=== PATIENT | male | born 1955 | race Caucasian/White ===

== ENCOUNTER 2019-04-27 18:33 | Inpatient (IN) | payer MEDICARE, OTHER ==
[~2019-04-27] VITALS: Ht 182.9 cm; Wt 111.7 kg
--- NOTE | 2019-04-27 18:35 | NUR ---
pt recieved from [facility] with report of [facility]. er md donahue at bedside. pt recieved 324 asa, 2 mg morphine, 40 lasix prehospital. pt on bi pap. bilateral peripheral edema. pt A+Ox4. pt reports no previous heart problems. denies diabetes. pt reports he smokes about a pack a week.
--- NOTE | 2019-04-27 18:41 | NUR ---
code cardiac canceled, per dr shepherd
--- NOTE | 2019-04-27 19:00 | NUR ---
report given to andrew avelar Addendum: 04/27/19 at 1901 by VITALIY alexandra
[2019-04-27 19:03] LABS: MEAN CORPUSCULAR HEMOGLOBIN 28.1 pg (27.5-34.5); MEAN CORPUSCULAR VOLUME 85.1 fL (81-97); MEAN PLATELET VOLUME 10.5 fL (7.4-10.4); PLATELET COUNT 324 x10^3/uL (130-400); RED BLOOD COUNT 5.33 x10^6/uL (4.38-5.82); RED CELL DISTRIBUTION WIDTH 14.8 % (9.4-14.8)
[2019-04-27] MEDS ORDERED: BENA20TA61 PO (19:04)
[2019-04-27] MEDS ORDERED: CARV12.543 PO (19:04)
[2019-04-27] MEDS ORDERED: AMLO10TA4 PO (19:04)
--- NOTE | 2019-04-27 19:09 | NUR ---
Kendrick muro in [facility] - 04/27/19 at 1909 by MELITON Patient/Caregiver given discharge instructions and they have confirmed that they understand the instructions. Patient ambulatory with steady gait.
[2019-04-27 19:14] LABS: INTERNATIONAL NORMALIZED RATIO 1.12 (0.93-1.1); PROTHROMBIN TIME 11.7 Seconds (9.6-11.5)
--- NOTE | 2019-04-27 19:15 | NUR ---
REPORT REC. VERY PLEASANT GENTLEMAN WHO HAS HAD QUITE AN AFTERNOON, PRESENTED TO [facility] WITH COMPLAINTS OF SOB, HEMOPTYSIS, LEG SWELLING CHEST PAIN FOR APPROX 1 WEEK. 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 PT IS CURRENTLY ON OPTI FLOW, CONTIUES WITH SOME SOB, DR SERVIN IS COMING TO SEE PT CURRENTLY, WILL AWAIT CT WITH CONTRAST UNTIL LABS RETURNED AND PER DR PAN REQUEST TO EVAL PT HERE FIRST. PT NOTES THAT HE QUIT TAKING HIS MEDICATIONS 10 YEARS AGO AND CURRENTLY USES CBD OIL ONLY.
[2019-04-27 19:20] LABS: ALANINE AMINOTRANSFERASE 21 U/L (12-78); ALBUMIN 2.5 g/dL (3.4-5.0); ANION GAP 14 mmol/L (5-15); CHLORIDE 111 mmol/L (98-107); CREATININE 2.39 mg/dL (0.7-1.3)
[2019-04-27 19:23] LABS: ALKALINE PHOSPHATASE 61 U/L (45-117); BILIRUBIN,TOTAL 0.7 mg/dL (0.2-1.0); MD YES; TOTAL PROTEIN 7.1 g/dL (6.4-8.2)
[2019-04-27 19:25] LABS: <PLATELET ESTIMATE> ADEQUATE; <PLT MORPHOLOGY> NORMAL PLT MORPH; <RBC MORPHOLOGY> NORMAL; LYMPH#(MANUAL) 1.32 x10^3/uL (1-3.4); LYMPHS% (MANUAL) 6 % (22-44); MONOS% (MANUAL) 5 % (2-9); SEG#(MANUAL) 19.58 x10^3/uL (1.8-6.8); SEGS% (MANUAL) 89 % (42-75)
--- NOTE | 2019-04-27 19:34 | NUR ---
DUE TO ELEVATED CR, CT WILL BE NON CONTRAST. LABS DRAWING BLOOD CULTURES CURRENTLY, PT CONTINUES WITH ELEVATED WBC, 22 HERE.
--- NOTE | 2019-04-27 19:41 | NUR ---
PT REC LASIX 40MG IV AT 1756, MORPHINE 2MG 1759, ASA 324MG AND ZOFRAN MG CHILD DAY CARE PROVIDER AT [facility]
--- NOTE | 2019-04-27 19:59 | NUR ---
PT TO CT AT THIS TIME, VERY PLEASANT GENTLEMAN
--- NOTE | 2019-04-27 20:16 | NUR ---
PT RETURN FROM CT AT THIS TIME, STATES THAT HE IS FEELING SOMEWHAT BETTER AND PAIN FREE, ST MONITOR WITHOUT ECTOPY. CARD TELE BED CHANGED TO ICU PER CARDS AND HOSPITALIST
--- NOTE | 2019-04-27 20:19 | NUR ---
DR VAZQUEZ AT BEDSIDE.
[2019-04-27 20:23] LABS: CHOL/HDL RATIO 4.6; LDL/HDL RATIO 2.6 (0.5-3.0)
[2019-04-27] MEDS ORDERED: FUROSEMIDE 40 MG/4 ML IV ONE (20:30)
[2019-04-27] MEDS ORDERED: FUROSEMIDE 40 MG/4 ML ONE (20:34)
[2019-04-27] MEDS ORDERED: HEPARIN 5,000 UNITS/ML, 1ML ONE (20:40)
[2019-04-27] MEDS ORDERED: HEPARIN 25,000 UNITS/500ML PMX 500 ML ONE (20:40)
--- NOTE | 2019-04-27 20:41 | NUR ---
DR VAZQUEZ IS REQUESTING PT BE HELD IN ER.
[2019-04-27] MEDS ORDERED: morphine SULFATE 10 MG/ML, 1ML IVPush PRN (21:00)
[2019-04-27] MEDS ORDERED: ATORVASTATIN 80 MG TABLET PO SCH (21:00)
[2019-04-27] MEDS ORDERED: HEPARIN 5,000 UNITS/ML, 1ML IV PRN (21:00)
[2019-04-27] MEDS ORDERED: HEPARIN 25,000 UNITS/500ML PMX 500 ML IV PRN (21:00)
[2019-04-27] MEDS ORDERED: ONDANSETRON 2MG/ML, 2ML IVPush PRN (21:00)
[2019-04-27] MEDS ORDERED: HYDROcodone/APAP 5/325 TABLET PO PRN (21:00)
[2019-04-27] MEDS ORDERED: HEPARIN 5,000 UNITS/ML, 1ML IV ONE (21:00)
--- NOTE | 2019-04-27 21:00 | NUR ---
LAB REPORTS ELEVATED ANTICA ELEVATED 0.93, DR VAZQUEZ AWARE, SPEAKING WITH PHARMACY AND NOTE TO HOLD INFUSION FOR 1 HOUR, THEN RESTART 200ML LOWER, AT 800U/HR. PT REMAINS STABLE AND NAD AT THIS TIME.
[2019-04-27 22:15] VITALS: BP 112/78
[2019-04-28 01:39] VITALS: BP 104/71
[2019-04-28 03:10] LABS: MICROSCOPIC INDICATED
[2019-04-28 04:57] LABS: MEAN CORPUSCULAR HEMOGLOBIN 27.8 pg (27.5-34.5); MEAN CORPUSCULAR HGB CONC 32.7 g/dL (33.2-36.2); MEAN CORPUSCULAR VOLUME 84.9 fL (81-97); MEAN PLATELET VOLUME 10.3 fL (7.4-10.4); PLATELET COUNT 350 x10^3/uL (130-400); RED BLOOD COUNT 5.14 x10^6/uL (4.38-5.82); RED CELL DISTRIBUTION WIDTH 15.1 % (9.4-14.8)
[2019-04-28 05:04] LABS: ALANINE AMINOTRANSFERASE 23 U/L (12-78); ALBUMIN 2.5 g/dL (3.4-5.0); ANION GAP 12 mmol/L (5-15); CALCIUM 8.6 mg/dL (8.5-10.1); CHLORIDE 109 mmol/L (98-107); CREATININE 2.47 mg/dL (0.7-1.3)
[2019-04-28 05:09] LABS: ALKALINE PHOSPHATASE 57 U/L (45-117); BILIRUBIN,TOTAL 0.7 mg/dL (0.2-1.0); TOTAL PROTEIN 6.9 g/dL (6.4-8.2)
[2019-04-28 05:42] LABS: BASOPHILS # (AUTO) 0.15 x10^3/uL (0-0.1); BASOPHILS % (AUTO) 1 % (0-1); EOSINOPHILS # (AUTO) 0.02 x10^3/uL (0-0.4); EOSINOPHILS % (AUTO) 0 % (1-7); LYMPHOCYTES # (AUTO) 1.41 x10^3/uL (1-3.4); LYMPHOCYTES % (AUTO) 9 % (22-44); MD SCAN; MONOCYTES # (AUTO) 0.74 x10^3/uL (0.2-0.8); MONOCYTES % (AUTO) 5 % (2-9); NEUTROPHILS # (AUTO) 13.44 x10^3/uL (1.8-6.8); NEUTROPHILS % (AUTO) 85 % (42-75)
[2019-04-28] MEDS ORDERED: ASPIRIN 81 MG TABLET EC PO SCH (06:00)
[2019-04-28 07:42] VITALS: BP 118/78
[2019-04-28] MEDS: DOCUSATE 100 MG CAPSULE PO SCH ×2 (09:00→21:00)
[2019-04-28] MEDS ORDERED: PHARMACY MAY ADJ FOR RENAL FX MC PRN (10:00)
[2019-04-28] MEDS ORDERED: DOPAMINE/D5W PMX 250 ML IV PRN (10:30)
[2019-04-28] MEDS ORDERED: PIPERACILLIN/TAZO 2.25 GM in SODIUM CHLORIDE 0.9% 50 ML IV SCH (10:30)
[2019-04-28] MEDS ORDERED: FUROSEMIDE 40 MG/4 ML IV SCH (10:30)
[2019-04-28] MEDS ORDERED: FENTANYL PF 100 MCG/2ML ONE ×2 (11:10→11:19)
[2019-04-28] MEDS ORDERED: PROPOFOL 0 ML IV ONE (11:11)
[2019-04-28] MEDS ORDERED: FENTANYL PF 100 MCG/2ML IVPush ONE (11:30)
[2019-04-28] MEDS ORDERED: HEPARIN 1,000 UNITS/ML, 10ML ONE ×2 (11:33→11:57)
[2019-04-28] MEDS ORDERED: LIDOCAINE 1%, 20ML ONE (11:33)
[2019-04-28] MEDS ORDERED: MIDAZOLAM 1 MG/ML, 5ML ONE (11:33)
[2019-04-28] MEDS ORDERED: FENTANYL PF 250 MCG/5ML ONE ×5 (11:33→12:21)
[2019-04-28] MEDS ORDERED: BIVALIRUDIN 250 MG ONE (11:34)
[2019-04-28] MEDS ORDERED: PROPOFOL 100 ML IV PRN (11:43)
[2019-04-28] MEDS ORDERED: PAPAVERINE 30 MG/ML, 2ML ONE (11:57)
[2019-04-28] MEDS ORDERED: DEXMEDETOMIDINE 200 MCG in SODIUM CHLORIDE 0.9% 48 ML IV SCH (12:00)
[2019-04-28] MEDS ORDERED: VANCOMYCIN 1,700 MG in SODIUM CHLORIDE 0.9% 250 ML IV PRN (12:00)
[2019-04-28] MEDS ORDERED: PHARMACY MAY ADJ FOR RENAL FX MC SCH (12:00)
[2019-04-28] MEDS ORDERED: FENTANYL PF 100 MCG/2ML IVPush PRN ×2 (12:00→14:00)
[2019-04-28] MEDS ORDERED: BISACODYL 10 MG SUPP PR PRN ×2 (12:00→14:00)
[2019-04-28] MEDS ORDERED: EPINEPHRINE 2 MG in SODIUM CHLORIDE 0.9% 248 ML IV SCH (12:00)
[2019-04-28] MEDS ORDERED: CEFUROXIME 1.5 GM in SODIUM CHLORIDE 0.9% 50 ML IVPB PRN (12:00)
[2019-04-28] MEDS ORDERED: SENNA/DOCUSATE TABLET NG PRN (12:00)
[2019-04-28] MEDS ORDERED: POTASSIUM CHLORIDE 80 MEQ, SODIUM BICARBONATE 8.4% 10 MEQ, MAGNESIUM SULFATE 0.5 GM, LI... IV PRN (12:00)
[2019-04-28] MEDS ORDERED: SENNA 176 MG/5 ML ORAL SOL NG PRN (12:00)
[2019-04-28] MEDS: FAMOTIDINE 20 MG/2 ML IV SCH (12:00)
[2019-04-28] MEDS ORDERED: REGULAR INSULIN 62.5 UNITS in SODIUM CHLORIDE 0.9% 249.375 ML IV PRN ×2 (12:00→13:38)
[2019-04-28] MEDS ORDERED: PHENYLEPHRINE 10 MG in SODIUM CHLORIDE 0.9% 249 ML IV PRN ×2 (12:00→13:38)
[2019-04-28] MEDS ORDERED: MANNITOL PMX 20% 500 ML IVPB PRN (12:00)
[2019-04-28] MEDS ORDERED: LACTULOSE 20 GM/30 ML UDC NG PRN (12:00)
[2019-04-28] MEDS ORDERED: LIDOCAINE-MPF 1%, 2ML ENDO PRN (12:00)
[2019-04-28] MEDS ORDERED: ALBUMIN HUMAN 5% 500 ML IV PRN (12:00)
[2019-04-28] MEDS ORDERED: PHENYLEPHRINE 10 MG/ML ONE (12:14)
[2019-04-28] MEDS ORDERED: MIDAZOLAM 10MG/2 ML ONE (12:20)
[2019-04-28] MEDS ORDERED: SODIUM CHLORIDE 0.9% 1,000 ML IV PRN (13:38)
[2019-04-28] MEDS ORDERED: DOBUTAMINE 250 MG in SODIUM CHLORIDE 0.9% 230 ML IV PRN (13:38)
[2019-04-28] MEDS ORDERED: NITROGLYCERIN/D5W PMX 250 ML IV PRN (13:38)
[2019-04-28] MEDS ORDERED: VASOPRESSIN 50 UNIT in SODIUM CHLORIDE 0.9% 247.5 ML IV PRN (13:38)
[2019-04-28] MEDS ORDERED: EPINEPHRINE 2 MG in SODIUM CHLORIDE 0.9% 248 ML IV PRN (14:00)
[2019-04-28] MEDS ORDERED: DEXTROSE 50%, 50ML SYRINGE IVPush PRN (14:00)
[2019-04-28] MEDS ORDERED: LACTATED RINGERS 1,000 ML IV PRN (14:00)
[2019-04-28] MEDS ORDERED: SODIUM BICARB 8.4%, 50ML SYRINGE IV PRN (14:00)
[2019-04-28] MEDS ORDERED: PROCHLORPERAZINE 5 MG/ML, 2ML IVPush PRN (14:00)
[2019-04-28] MEDS ORDERED: GLUCAGON 1 MG IM PRN (14:00)
[2019-04-28] MEDS ORDERED: ONDANSETRON 2MG/ML, 2ML IVPush PRN (14:00)
[2019-04-28] MEDS ORDERED: MIDAZOLAM 1 MG/ML, 5ML IVPush PRN (14:00)
[2019-04-28] MEDS: KSCALE TO 4.5 IV SCH ×2 (14:00→20:00)
[2019-04-28] MEDS ORDERED: INSULIN REGULAR 100 UNITS/ML, 3ML VIAL IVPush PRN (14:00)
[2019-04-28] MEDS ORDERED: DEXTROSE 4 GM TAB.CHEW PO PRN (14:00)
[2019-04-28] MEDS ORDERED: ACETAMINOPHEN 650 MG SUPP PR PRN (14:00)
[2019-04-28] MEDS ORDERED: ROCURONIUM 10MG/ML,5ML ONE ×2 (14:23)
[2019-04-28] MEDS ORDERED: AMINOCAPROIC ACID 250 MG/ML, 20ML ONE (14:23)
[2019-04-28] MEDS ORDERED: PROPOFOL 10 MG/ML, 20ML ONE (14:23)
[2019-04-28] MEDS ORDERED: PROTAMINE SULFATE 10 MG/ML, 25ML ONE ×2 (14:23)
[2019-04-28] MEDS ORDERED: CALCIUM CHLORIDE 10%, 10ML SYR ONE (15:16)
[2019-04-28] MEDS ORDERED: EPINEPHRINE 1 MG/ML, 1ML ONE (15:37)
[2019-04-28] MEDS: INSULIN LISPRO 100 UNITS/ML, PEN SQ-INSULIN SCH ×2 (16:00→21:00)
[2019-04-28] MEDS ORDERED: methylPREDNISolone SOD SUCC 125 MG/2 ML ONE (16:01)
[2019-04-28] MEDS ORDERED: SODIUM BICARBONATE 1 MEQ/ML, 50ML VIAL ONE ×3 (16:01→17:32)
[2019-04-28] MEDS ORDERED: LIDOCAINE 2% 100MG/5ML SYRINGE ONE (16:01)
[2019-04-28] MEDS ORDERED: HEPARIN 1,000 UNITS/ML, 30ML ONE (16:02)
[2019-04-28] MEDS ORDERED: ALBUMIN HUMAN 25% 100 ML ONE (16:02)
[2019-04-28] MEDS: ALBUTEROL/IPRATROPIUM 2.5MG/0.5MG, 3 ML INLINE SCH ×2 (16:05→18:54)
[2019-04-28 16:33] LABS: GLUCOSE BY BLOOD GAS ANALYZER 209 mg/dL (70-110); POTASSIUM BY BLOOD GAS ANALYZR 3.9 mmol/L (3.6-5.5)
[2019-04-28 16:40] LABS: INTERNATIONAL NORMALIZED RATIO 1.29 (0.93-1.1); PROTHROMBIN TIME 13.4 Seconds (9.6-11.5)
[2019-04-28] MEDS: MAGNESIUM SULFATE 1 GM in SODIUM CHLORIDE 0.9% 50 ML IVPB SCH (17:39)
[2019-04-28] MEDS ORDERED: POTASSIUM CHLORIDE PMX 100 ML IV ONE (19:00)
[2019-04-28] MEDS ORDERED: EPINEPHRINE 8 MG in SODIUM CHLORIDE 0.9% 242 ML IV PRN (19:56)
[2019-04-28] MEDS: DEXMEDETOMIDINE 200 MCG in SODIUM CHLORIDE 0.9% 48 ML IV PRN (20:39)
[2019-04-28] MEDS: SODIUM CHLORIDE FLUSH 10ML SYR IVF SCH (21:48)
[2019-04-28] MEDS: MUPIROCIN OINT 2%, 22GM NAS SCH (21:49)
[2019-04-29] MEDS: DEXMEDETOMIDINE 200 MCG in SODIUM CHLORIDE 0.9% 48 ML IV PRN ×3 (00:10→06:06)
[2019-04-29] MEDS: CEFUROXIME 1.5 GM in SODIUM CHLORIDE 0.9% 50 ML IVPB SCH ×2 (01:19→14:07)
[2019-04-29] MEDS ORDERED: MIDAZOLAM 1 MG/ML, 2ML ONE (01:56)
[2019-04-29] MEDS: KSCALE TO 4.5 IV SCH ×2 (02:00→08:00)
[2019-04-29] MEDS: ALBUTEROL/IPRATROPIUM 2.5MG/0.5MG, 3 ML INLINE SCH ×5 (03:34→14:50)
[2019-04-29 04:51] LABS: CREATININE,URINE RANDOM 92.5 mg/dL
[2019-04-29 05:01] LABS: MEAN CORPUSCULAR HEMOGLOBIN 28.2 pg (27.5-34.5); MEAN CORPUSCULAR VOLUME 85.3 fL (81-97); MEAN PLATELET VOLUME 9.9 fL (7.4-10.4); PLATELET COUNT 193 x10^3/uL (130-400); RED BLOOD COUNT 4.03 x10^6/uL (4.38-5.82); RED CELL DISTRIBUTION WIDTH 15.2 % (9.4-14.8)
[2019-04-29 05:06] LABS: ALBUMIN 2.2 g/dL (3.4-5.0); ANION GAP 6 mmol/L (5-15); CALCIUM 8.1 mg/dL (8.5-10.1); CHLORIDE 115 mmol/L (98-107); INTERNATIONAL NORMALIZED RATIO 1.2 (0.93-1.1); PROTHROMBIN TIME 12.5 Seconds (9.6-11.5)
[2019-04-29 05:10] LABS: ALANINE AMINOTRANSFERASE 36 U/L (12-78); ALKALINE PHOSPHATASE 43 U/L (45-117); BILIRUBIN,TOTAL 0.7 mg/dL (0.2-1.0); TOTAL PROTEIN 5.3 g/dL (6.4-8.2)
[2019-04-29 05:45] LABS: BASOPHILS # (AUTO) 0.01 x10^3/uL (0-0.1); BASOPHILS % (AUTO) 0 % (0-1); EOSINOPHILS % (AUTO) 0 % (1-7); LYMPHOCYTES # (AUTO) 0.64 x10^3/uL (1-3.4); LYMPHOCYTES % (AUTO) 4 % (22-44); MD SCAN; MONOCYTES # (AUTO) 0.87 x10^3/uL (0.2-0.8); MONOCYTES % (AUTO) 6 % (2-9); NEUTROPHILS # (AUTO) 13.71 x10^3/uL (1.8-6.8); NEUTROPHILS % (AUTO) 90 % (42-75)
[2019-04-29] MEDS: INSULIN LISPRO 100 UNITS/ML, PEN SQ-INSULIN SCH ×5 (06:07→23:00)
[2019-04-29] MEDS: DOCUSATE 100 MG CAPSULE PO SCH ×2 (09:00→21:02)
[2019-04-29] MEDS: SODIUM CHLORIDE FLUSH 10ML SYR IVF SCH ×2 (09:00→21:02)
[2019-04-29] MEDS: MUPIROCIN OINT 2%, 22GM NAS SCH ×2 (09:00→21:01)
[2019-04-29] MEDS: ASPIRIN 81 MG TABLET EC PO SCH (09:00)
[2019-04-29] MEDS: WARFARIN BIOPROSTHETIC VALVE PROTOCOL 2-3 XX SCH (09:00)
[2019-04-29] MEDS ORDERED: VANCOMYCIN 1,700 MG in SODIUM CHLORIDE 0.9% 250 ML IVPB ONE ×2 (13:00→13:30)
[2019-04-29 13:16] LABS: CALCIUM 8.1 mg/dL (8.5-10.1)
[2019-04-29 13:17] LABS: ABSOLUTE RETICS # 0.108 x10^6/uL (0.5-1.5); RED BLOOD COUNT 4.04 x10^6/uL (4.38-5.82); RETICULOCYTE COUNT % 2.68 % (0.5-1.5)
[2019-04-29] MEDS: MAGNESIUM SULFATE 1 GM in SODIUM CHLORIDE 0.9% 50 ML IVPB SCH (14:06)
[2019-04-29] MEDS ORDERED: WARFARIN 5 MG TABLET PO-COUM SCH (18:00)
[2019-04-29] MEDS: HYDROcodone/APAP 10/325 MG TABLET PO PRN (20:29)
[2019-04-29] MEDS: CHLORHEXIDINE 15 ML UDC MM SCH (21:01)
[2019-04-30] MEDS: HYDROcodone/APAP 10/325 MG TABLET PO PRN ×4 (02:08→21:39)
[2019-04-30] MEDS: INSULIN LISPRO 100 UNITS/ML, PEN SQ-INSULIN SCH ×3 (03:00→11:22)
[2019-04-30] MEDS: FAMOTIDINE 20 MG/2 ML IV SCH ×2 (04:49→08:36)
[2019-04-30 04:54] LABS: MEAN CORPUSCULAR HEMOGLOBIN 27.4 pg (27.5-34.5); MEAN CORPUSCULAR HGB CONC 32.6 g/dL (33.2-36.2); MEAN CORPUSCULAR VOLUME 83.9 fL (81-97); MEAN PLATELET VOLUME 9.4 fL (7.4-10.4); PLATELET COUNT 147 x10^3/uL (130-400); RED BLOOD COUNT 3.88 x10^6/uL (4.38-5.82); RED CELL DISTRIBUTION WIDTH 15.5 % (9.4-14.8)
[2019-04-30 05:04] LABS: INTERNATIONAL NORMALIZED RATIO 1.14 (0.93-1.1); PROTHROMBIN TIME 11.9 Seconds (9.6-11.5)
[2019-04-30 05:06] LABS: ALBUMIN 2.1 g/dL (3.4-5.0); ANION GAP 8 mmol/L (5-15); CALCIUM 8.1 mg/dL (8.5-10.1); CHLORIDE 113 mmol/L (98-107)
[2019-04-30 05:11] LABS: ALANINE AMINOTRANSFERASE 36 U/L (12-78); ALKALINE PHOSPHATASE 48 U/L (45-117); BILIRUBIN,TOTAL 0.6 mg/dL (0.2-1.0); CREATINE KINASE, TOTAL 854 U/L (39-308); CREATININE 1.22 mg/dL (0.7-1.3); TOTAL PROTEIN 5.2 g/dL (6.4-8.2)
[2019-04-30 05:39] LABS: BASOPHILS # (AUTO) 0.07 x10^3/uL (0-0.1); BASOPHILS % (AUTO) 1 % (0-1); EOSINOPHILS # (AUTO) 0.02 x10^3/uL (0-0.4); EOSINOPHILS % (AUTO) 0 % (1-7); LYMPHOCYTES # (AUTO) 1.09 x10^3/uL (1-3.4); LYMPHOCYTES % (AUTO) 7 % (22-44); MD SCAN; MONOCYTES # (AUTO) 0.92 x10^3/uL (0.2-0.8); MONOCYTES % (AUTO) 6 % (2-9); NEUTROPHILS # (AUTO) 12.64 x10^3/uL (1.8-6.8); NEUTROPHILS % (AUTO) 86 % (42-75)
[2019-04-30] MEDS ORDERED: WARFARIN MODERAT DOSE PROTOCOL XX PRN (08:00)
[2019-04-30] MEDS: DOCUSATE 100 MG CAPSULE PO SCH ×2 (08:36→21:16)
[2019-04-30] MEDS: IRON SUCROSE COMPLEX 100MG/5ML IV SCH (08:36)
[2019-04-30] MEDS: ERGOCALCIFEROL 50,000 UNIT CAPSULE PO SCH (08:36)
[2019-04-30] MEDS: SODIUM CHLORIDE FLUSH 10ML SYR IVF SCH ×2 (08:37→21:16)
[2019-04-30] MEDS: ASPIRIN 81 MG TABLET EC PO SCH (08:37)
[2019-04-30] MEDS: MUPIROCIN OINT 2%, 22GM NAS SCH ×2 (08:37→21:16)
[2019-04-30 10:30] VITALS: BP 158/89
[2019-04-30] MEDS: CHLORHEXIDINE 15 ML UDC MM SCH ×2 (10:56→21:16)
[2019-04-30] MEDS: METOPROLOL TARTRATE 25 MG TABLET PO SCH ×2 (10:57→18:14)
[2019-04-30] MEDS: WARFARIN BIOPROSTHETIC VALVE PROTOCOL 2-3 XX SCH (11:03)
[2019-04-30 12:34] LABS: MICROSCOPIC INDICATED
[2019-04-30] MEDS: MAGNESIUM SULFATE 1 GM in SODIUM CHLORIDE 0.9% 50 ML IVPB SCH (13:36)
[2019-04-30 14:50] VITALS: BP 161/75
[2019-04-30] MEDS ORDERED: WARFARIN 5 MG TABLET PO-COUM ONE (18:00)
[2019-04-30] MEDS ORDERED: WARFARIN 7.5 MG TABLET PO-COUM ONE (18:00)
[2019-04-30 18:10] VITALS: BP 125/70
[2019-04-30 18:57] VITALS: BP 134/67
[2019-04-30] MEDS: ATORVASTATIN 80 MG TABLET PO SCH (21:16)
[2019-05-01 01:22] VITALS: BP 146/90
[2019-05-01 04:24] LABS: BASOPHILS # (AUTO) 0.02 x10^3/uL (0-0.1); BASOPHILS % (AUTO) 0 % (0-1); EOSINOPHILS # (AUTO) 0.08 x10^3/uL (0-0.4); EOSINOPHILS % (AUTO) 1 % (1-7); LYMPHOCYTES # (AUTO) 1.21 x10^3/uL (1-3.4); LYMPHOCYTES % (AUTO) 9 % (22-44); MD NO; MEAN CORPUSCULAR HGB CONC 32.9 g/dL (33.2-36.2); MEAN CORPUSCULAR VOLUME 85.2 fL (81-97); MEAN PLATELET VOLUME 9.9 fL (7.4-10.4); MONOCYTES # (AUTO) 0.89 x10^3/uL (0.2-0.8); MONOCYTES % (AUTO) 7 % (2-9); NEUTROPHILS # (AUTO) 10.67 x10^3/uL (1.8-6.8); NEUTROPHILS % (AUTO) 83 % (42-75); PLATELET COUNT 157 x10^3/uL (130-400); RED BLOOD COUNT 3.94 x10^6/uL (4.38-5.82); RED CELL DISTRIBUTION WIDTH 14.7 % (9.4-14.8)
[2019-05-01 04:29] LABS: ALANINE AMINOTRANSFERASE 35 U/L (12-78); ALBUMIN 2.3 g/dL (3.4-5.0); ANION GAP 9 mmol/L (5-15); CALCIUM 8.1 mg/dL (8.5-10.1); CHLORIDE 109 mmol/L (98-107); CREATININE 0.99 mg/dL (0.7-1.3)
[2019-05-01 04:33] LABS: ALKALINE PHOSPHATASE 48 U/L (45-117); BILIRUBIN,TOTAL 0.6 mg/dL (0.2-1.0); TOTAL PROTEIN 5.3 g/dL (6.4-8.2); TRIGLYCERIDES 182 mg/dL (50-200)
[2019-05-01 05:59] VITALS: BP 137/85
[2019-05-01] MEDS: METOPROLOL TARTRATE 25 MG TABLET PO SCH ×2 (06:00→18:21)
[2019-05-01] MEDS: HYDROcodone/APAP 10/325 MG TABLET PO PRN (06:19)
[2019-05-01 06:25] VITALS: BP 145/90
[2019-05-01] MEDS: MUPIROCIN OINT 2%, 22GM NAS SCH ×2 (08:38→21:02)
[2019-05-01] MEDS: IRON SUCROSE COMPLEX 100MG/5ML IV SCH (08:38)
[2019-05-01] MEDS: CHLORHEXIDINE 15 ML UDC MM SCH (08:38)
[2019-05-01] MEDS: SODIUM CHLORIDE FLUSH 10ML SYR IVF SCH ×2 (08:38→21:02)
[2019-05-01] MEDS: ASPIRIN 81 MG TABLET EC PO SCH (08:38)
[2019-05-01] MEDS: DOCUSATE 100 MG CAPSULE PO SCH ×2 (08:38→20:47)
[2019-05-01 08:46] LABS: INTERNATIONAL NORMALIZED RATIO 1.27 (0.93-1.1); PROTHROMBIN TIME 13.2 Seconds (9.6-11.5)
[2019-05-01] MEDS: WARFARIN BIOPROSTHETIC VALVE PROTOCOL 2-3 XX SCH (09:00)
[2019-05-01] MEDS: HYDROCHLOROTHIAZIDE 25 MG TABLET PO SCH (10:59)
[2019-05-01] MEDS: ENALAPRIL 5MG TABLET PO SCH ×2 (11:00→20:47)
[2019-05-01 12:33] VITALS: BP 138/62
[2019-05-01] MEDS ORDERED: WARFARIN 7.5 MG TABLET PO-COUM ONE (18:00)
[2019-05-01] MEDS: ACETAMINOPHEN 325 MG TABLET PO PRN (20:47)
[2019-05-01] MEDS: FAMOTIDINE 20 MG TABLET PO SCH (20:47)
[2019-05-01] MEDS: ATORVASTATIN 80 MG TABLET PO SCH (20:47)
[2019-05-01] MEDS: BISACODYL 5 MG EC TABLET PO PRN (20:47)
[2019-05-01 20:48] VITALS: BP 149/97
[2019-05-02 01:29] VITALS: BP 150/102
[2019-05-02 05:14] VITALS: BP 144/98
[2019-05-02] MEDS: METOPROLOL TARTRATE 25 MG TABLET PO SCH ×2 (05:15→17:38)
[2019-05-02 06:23] LABS: INTERNATIONAL NORMALIZED RATIO 2.32 (0.93-1.1); PROTHROMBIN TIME 23.6 Seconds (9.6-11.5)
[2019-05-02 06:25] LABS: ALBUMIN 2.2 g/dL (3.4-5.0); ANION GAP 8 mmol/L (5-15); CALCIUM 8.2 mg/dL (8.5-10.1); CHLORIDE 109 mmol/L (98-107)
[2019-05-02 06:26] LABS: CREATININE 0.91 mg/dL (0.7-1.3)
[2019-05-02 06:28] LABS: BASOPHILS % (AUTO) 0 % (0-1); EOSINOPHILS # (AUTO) 0.17 x10^3/uL (0-0.4); EOSINOPHILS % (AUTO) 2 % (1-7); LYMPHOCYTES # (AUTO) 1.35 x10^3/uL (1-3.4); LYMPHOCYTES % (AUTO) 12 % (22-44); MD NO; MEAN CORPUSCULAR HEMOGLOBIN 27.9 pg (27.5-34.5); MEAN CORPUSCULAR HGB CONC 33.1 g/dL (33.2-36.2); MEAN CORPUSCULAR VOLUME 84.3 fL (81-97); MEAN PLATELET VOLUME 10.2 fL (7.4-10.4); MONOCYTES # (AUTO) 0.89 x10^3/uL (0.2-0.8); MONOCYTES % (AUTO) 8 % (2-9); NEUTROPHILS # (AUTO) 8.98 x10^3/uL (1.8-6.8); NEUTROPHILS % (AUTO) 79 % (42-75); PLATELET COUNT 191 x10^3/uL (130-400); RED BLOOD COUNT 4.24 x10^6/uL (4.38-5.82); RED CELL DISTRIBUTION WIDTH 14.9 % (9.4-14.8)
[2019-05-02 08:00] VITALS: BP 142/91
[2019-05-02] MEDS: HYDROCHLOROTHIAZIDE 25 MG TABLET PO SCH (08:18)
[2019-05-02] MEDS: IRON SUCROSE COMPLEX 100MG/5ML IV SCH (08:18)
[2019-05-02] MEDS: SODIUM CHLORIDE FLUSH 10ML SYR IVF SCH ×2 (08:18→21:30)
[2019-05-02] MEDS: FAMOTIDINE 20 MG TABLET PO SCH ×2 (08:19→21:30)
[2019-05-02] MEDS: MUPIROCIN OINT 2%, 22GM NAS SCH ×2 (08:19→21:30)
[2019-05-02] MEDS: ASPIRIN 81 MG TABLET EC PO SCH (08:19)
[2019-05-02] MEDS: ENALAPRIL 5MG TABLET PO SCH ×2 (08:19→21:30)
[2019-05-02] MEDS: DOCUSATE 100 MG CAPSULE PO SCH (08:19)
[2019-05-02] MEDS: WARFARIN BIOPROSTHETIC VALVE PROTOCOL 2-3 XX SCH (10:06)
[2019-05-02 11:13] LABS: MICROSCOPIC INDICATED
[2019-05-02 13:36] VITALS: BP 153/95
[2019-05-02] MEDS ORDERED: WARFARIN 2 MG TABLET PO-COUM ONE (18:00)
[2019-05-02 18:56] VITALS: BP 143/87
[2019-05-02] MEDS: ATORVASTATIN 80 MG TABLET PO SCH (21:30)
[2019-05-03 01:02] VITALS: BP 131/88
[2019-05-03 05:31] LABS: INTERNATIONAL NORMALIZED RATIO 4.33 (0.93-1.1)
[2019-05-03 05:33] LABS: BASOPHILS # (AUTO) 0.03 x10^3/uL (0-0.1); BASOPHILS % (AUTO) 0 % (0-1); EOSINOPHILS # (AUTO) 0.22 x10^3/uL (0-0.4); EOSINOPHILS % (AUTO) 2 % (1-7); LYMPHOCYTES # (AUTO) 1.32 x10^3/uL (1-3.4); LYMPHOCYTES % (AUTO) 14 % (22-44); MD NO; MEAN CORPUSCULAR HEMOGLOBIN 27.7 pg (27.5-34.5); MEAN CORPUSCULAR HGB CONC 33.1 g/dL (33.2-36.2); MEAN CORPUSCULAR VOLUME 83.6 fL (81-97); MEAN PLATELET VOLUME 9.9 fL (7.4-10.4); MONOCYTES # (AUTO) 0.84 x10^3/uL (0.2-0.8); MONOCYTES % (AUTO) 9 % (2-9); NEUTROPHILS # (AUTO) 7.34 x10^3/uL (1.8-6.8); NEUTROPHILS % (AUTO) 75 % (42-75); PLATELET COUNT 206 x10^3/uL (130-400); RED BLOOD COUNT 4.09 x10^6/uL (4.38-5.82); RED CELL DISTRIBUTION WIDTH 14.4 % (9.4-14.8)
[2019-05-03 05:39] LABS: CALCIUM 8.2 mg/dL (8.5-10.1); CHLORIDE 107 mmol/L (98-107)
[2019-05-03 05:41] LABS: ANION GAP 8 mmol/L (5-15); CREATININE 0.78 mg/dL (0.7-1.3)
[2019-05-03] MEDS: METOPROLOL TARTRATE 25 MG TABLET PO SCH ×2 (06:36→17:58)
[2019-05-03 07:32] VITALS: BP 127/90
[2019-05-03] MEDS: IRON SUCROSE COMPLEX 100MG/5ML IV SCH (09:17)
[2019-05-03] MEDS: DOCUSATE 100 MG CAPSULE PO SCH (09:17)
[2019-05-03] MEDS: MUPIROCIN OINT 2%, 22GM NAS SCH (09:17)
[2019-05-03] MEDS: FAMOTIDINE 20 MG TABLET PO SCH ×2 (09:17→20:58)
[2019-05-03] MEDS: HYDROCHLOROTHIAZIDE 25 MG TABLET PO SCH (09:17)
[2019-05-03] MEDS: ASPIRIN 81 MG TABLET EC PO SCH (09:17)
[2019-05-03] MEDS: ENALAPRIL 5MG TABLET PO SCH ×2 (09:18→20:58)
[2019-05-03] MEDS: SODIUM CHLORIDE FLUSH 10ML SYR IVF SCH ×2 (09:18→20:59)
[2019-05-03] MEDS: WARFARIN BIOPROSTHETIC VALVE PROTOCOL 2-3 XX SCH (09:18)
[2019-05-03 14:06] VITALS: BP 138/86
[2019-05-03] MEDS ORDERED: HOLD WARFARIN MC PRN (15:00)
[2019-05-03 19:17] VITALS: BP 120/83
[2019-05-03] MEDS: ATORVASTATIN 80 MG TABLET PO SCH (20:58)
[2019-05-04 01:24] VITALS: BP 159/106
[2019-05-04] MEDS ORDERED: ENALAPRILAT 1.25 MG/ML, 2ML IV ONE (02:00)
[2019-05-04] MEDS ORDERED: ENALAPRILAT 1.25 MG/ML, 1ML ONE (02:15)
[2019-05-04 02:46] VITALS: BP 145/92
[2019-05-04 05:03] LABS: ANION GAP 7 mmol/L (5-15); BASOPHILS # (AUTO) 0.04 x10^3/uL (0-0.1); BASOPHILS % (AUTO) 0 % (0-1); CALCIUM 8.4 mg/dL (8.5-10.1); CHLORIDE 109 mmol/L (98-107); CREATININE 0.84 mg/dL (0.7-1.3); EOSINOPHILS # (AUTO) 0.13 x10^3/uL (0-0.4); EOSINOPHILS % (AUTO) 1 % (1-7); LYMPHOCYTES # (AUTO) 1.41 x10^3/uL (1-3.4); LYMPHOCYTES % (AUTO) 14 % (22-44); MD NO; MEAN CORPUSCULAR HGB CONC 33.1 g/dL (33.2-36.2); MEAN CORPUSCULAR VOLUME 84.6 fL (81-97); MEAN PLATELET VOLUME 9.9 fL (7.4-10.4); MONOCYTES # (AUTO) 0.84 x10^3/uL (0.2-0.8); MONOCYTES % (AUTO) 8 % (2-9); NEUTROPHILS # (AUTO) 7.61 x10^3/uL (1.8-6.8); NEUTROPHILS % (AUTO) 76 % (42-75); PLATELET COUNT 245 x10^3/uL (130-400); RED BLOOD COUNT 4.34 x10^6/uL (4.38-5.82); RED CELL DISTRIBUTION WIDTH 14.8 % (9.4-14.8); TRIGLYCERIDES 166 mg/dL (50-200)
[2019-05-04] MEDS: METOPROLOL TARTRATE 25 MG TABLET PO SCH ×2 (05:51→17:20)
[2019-05-04] MEDS: ACETAMINOPHEN 325 MG TABLET PO PRN ×2 (05:54→17:19)
[2019-05-04 06:23] LABS: INTERNATIONAL NORMALIZED RATIO 4.78 (0.93-1.1); PROTHROMBIN TIME 47.3 Seconds (9.6-11.5)
[2019-05-04 06:40] VITALS: BP 132/91
[2019-05-04] MEDS: ENALAPRIL 5MG TABLET PO SCH ×2 (08:21→20:27)
[2019-05-04] MEDS: HYDROCHLOROTHIAZIDE 25 MG TABLET PO SCH (08:22)
[2019-05-04] MEDS: ASPIRIN 81 MG TABLET EC PO SCH (08:23)
[2019-05-04] MEDS: IRON SUCROSE COMPLEX 100MG/5ML IV SCH (08:23)
[2019-05-04] MEDS: DOCUSATE 100 MG CAPSULE PO SCH (08:23)
[2019-05-04] MEDS: FAMOTIDINE 20 MG TABLET PO SCH ×2 (08:23→20:27)
[2019-05-04] MEDS: SODIUM CHLORIDE FLUSH 10ML SYR IVF SCH ×2 (08:24→20:27)
[2019-05-04] MEDS ORDERED: PHYTONADIONE 10 MG/ML, 1ML IM ONE (11:30)
[2019-05-04] MEDS ORDERED: POTASSIUM CHLORIDE 20 MEQ TAB.ER.PRT PO ONE (12:30)
[2019-05-04 14:48] VITALS: BP 98/54
[2019-05-04 15:00] VITALS: BP 130/85
[2019-05-04] MEDS: PHENAZOPYRIDINE 200 MG TABLET PO PRN (17:18)
[2019-05-04 18:12] LABS: MICROSCOPIC INDICATED
[2019-05-04 18:42] VITALS: BP 140/89
[2019-05-04] MEDS: ATORVASTATIN 80 MG TABLET PO SCH (20:27)
[2019-05-04 23:48] LABS: CLOSTRIDIUM DIFFICILE ANTIGEN NEGATIVE; CLOSTRIDIUM DIFFICILE TOXIN NEGATIVE (Negative)
[2019-05-05] MEDS: ACETAMINOPHEN 325 MG TABLET PO PRN ×2 (00:37→13:49)
[2019-05-05 01:22] VITALS: BP 145/95
[2019-05-05] MEDS: PHENAZOPYRIDINE 200 MG TABLET PO PRN ×2 (04:31→13:49)
[2019-05-05 04:54] LABS: BASOPHILS # (AUTO) 0.02 x10^3/uL (0-0.1); BASOPHILS % (AUTO) 0 % (0-1); EOSINOPHILS # (AUTO) 0.15 x10^3/uL (0-0.4); EOSINOPHILS % (AUTO) 1 % (1-7); LYMPHOCYTES # (AUTO) 1.56 x10^3/uL (1-3.4); LYMPHOCYTES % (AUTO) 15 % (22-44); MD NO; MEAN CORPUSCULAR HGB CONC 33.1 g/dL (33.2-36.2); MEAN CORPUSCULAR VOLUME 84.5 fL (81-97); MEAN PLATELET VOLUME 9.8 fL (7.4-10.4); MONOCYTES # (AUTO) 0.88 x10^3/uL (0.2-0.8); MONOCYTES % (AUTO) 8 % (2-9); NEUTROPHILS # (AUTO) 8.17 x10^3/uL (1.8-6.8); NEUTROPHILS % (AUTO) 76 % (42-75); PLATELET COUNT 273 x10^3/uL (130-400); RED CELL DISTRIBUTION WIDTH 14.9 % (9.4-14.8)
[2019-05-05 05:03] LABS: INTERNATIONAL NORMALIZED RATIO 3.23 (0.93-1.1); PROTHROMBIN TIME 32.4 Seconds (9.6-11.5)
[2019-05-05] MEDS: METOPROLOL TARTRATE 25 MG TABLET PO SCH ×2 (05:03→17:49)
[2019-05-05 05:06] LABS: ANION GAP 9 mmol/L (5-15); CALCIUM 8.5 mg/dL (8.5-10.1); CHLORIDE 109 mmol/L (98-107)
[2019-05-05 07:12] VITALS: BP 139/91
[2019-05-05] MEDS: DOCUSATE 100 MG CAPSULE PO SCH (07:33)
[2019-05-05] MEDS: ASPIRIN 81 MG TABLET EC PO SCH (08:10)
[2019-05-05] MEDS: FAMOTIDINE 20 MG TABLET PO SCH ×2 (08:10→20:21)
[2019-05-05] MEDS: ENALAPRIL 5MG TABLET PO SCH ×2 (08:10→20:20)
[2019-05-05] MEDS: HYDROCHLOROTHIAZIDE 25 MG TABLET PO SCH (08:12)
[2019-05-05] MEDS: SODIUM CHLORIDE FLUSH 10ML SYR IVF SCH ×2 (08:13→20:21)
[2019-05-05 13:39] VITALS: BP 130/86
[2019-05-05] MEDS: TAMSULOSIN 0.4 MG CAP.ER.24H PO SCH (17:49)
[2019-05-05 17:52] VITALS: BP 125/83
[2019-05-05 18:51] VITALS: BP 134/87
[2019-05-05] MEDS: ATORVASTATIN 80 MG TABLET PO SCH (20:20)
[2019-05-06 01:46] VITALS: BP 129/85
[2019-05-06 05:13] VITALS: BP 136/90
[2019-05-06] MEDS: METOPROLOL TARTRATE 25 MG TABLET PO SCH ×2 (05:14→18:15)
[2019-05-06] MEDS: ACETAMINOPHEN 325 MG TABLET PO PRN (05:14)
[2019-05-06 06:02] LABS: BASOPHILS # (AUTO) 0.03 x10^3/uL (0-0.1); BASOPHILS % (AUTO) 0 % (0-1); EOSINOPHILS # (AUTO) 0.17 x10^3/uL (0-0.4); EOSINOPHILS % (AUTO) 2 % (1-7); LYMPHOCYTES # (AUTO) 1.68 x10^3/uL (1-3.4); LYMPHOCYTES % (AUTO) 16 % (22-44); MD NO; MEAN CORPUSCULAR HEMOGLOBIN 28.2 pg (27.5-34.5); MEAN CORPUSCULAR HGB CONC 33.3 g/dL (33.2-36.2); MEAN CORPUSCULAR VOLUME 84.6 fL (81-97); MEAN PLATELET VOLUME 9.6 fL (7.4-10.4); MONOCYTES # (AUTO) 0.94 x10^3/uL (0.2-0.8); MONOCYTES % (AUTO) 9 % (2-9); NEUTROPHILS # (AUTO) 7.42 x10^3/uL (1.8-6.8); NEUTROPHILS % (AUTO) 72 % (42-75); PLATELET COUNT 299 x10^3/uL (130-400); RED BLOOD COUNT 4.31 x10^6/uL (4.38-5.82)
[2019-05-06 06:11] LABS: ANION GAP 7 mmol/L (5-15); CALCIUM 8.4 mg/dL (8.5-10.1); CHLORIDE 109 mmol/L (98-107); CREATININE 0.86 mg/dL (0.7-1.3)
[2019-05-06 06:21] LABS: INTERNATIONAL NORMALIZED RATIO 1.88 (0.93-1.1); PROTHROMBIN TIME 19.3 Seconds (9.6-11.5)
[2019-05-06 07:05] VITALS: BP 135/87
[2019-05-06] MEDS ORDERED: Tamsulosin PO (08:53)
[2019-05-06] MEDS ORDERED: ACET325T26 PO (08:53)
[2019-05-06] MEDS ORDERED: ATOR-2 PO (08:53)
[2019-05-06] MEDS ORDERED: ASPI81TA45 PO (08:53)
[2019-05-06] MEDS: DOCUSATE 100 MG CAPSULE PO SCH (09:00)
[2019-05-06] MEDS: HYDROCHLOROTHIAZIDE 25 MG TABLET PO SCH (09:00)
[2019-05-06] MEDS ORDERED: WARF5TAB PO ×2 (09:04)
[2019-05-06] MEDS: FAMOTIDINE 20 MG TABLET PO SCH ×2 (09:42→20:27)
[2019-05-06] MEDS: ENALAPRIL 5MG TABLET PO SCH ×2 (09:42→20:27)
[2019-05-06] MEDS: TAMSULOSIN 0.4 MG CAP.ER.24H PO SCH (09:43)
[2019-05-06] MEDS: ASPIRIN 81 MG TABLET EC PO SCH (09:43)
[2019-05-06] MEDS ORDERED: FILTER 0.22 MICRON FOR AMIODARONE IV PRN (10:00)
[2019-05-06] MEDS ORDERED: AMIODARONE 900 MG in DEXTROSE 5% 482 ML IV PRN (10:00)
[2019-05-06] MEDS ORDERED: AMIODARONE 150 MG in DEXTROSE 5% 100 ML IV ONE (10:00)
[2019-05-06] MEDS ORDERED: POTASSIUM CHLORIDE 20 MEQ TAB.ER.PRT PO ONE (10:00)
[2019-05-06] MEDS: SODIUM CHLORIDE FLUSH 10ML SYR IVF SCH ×2 (10:15→20:27)
[2019-05-06 13:56] VITALS: BP 124/82
[2019-05-06 18:46] VITALS: BP 148/88
[2019-05-06 20:25] VITALS: BP 120/77
[2019-05-06] MEDS: ATORVASTATIN 80 MG TABLET PO SCH (20:26)
[2019-05-07 01:13] VITALS: BP 139/86
[2019-05-07 05:17] VITALS: BP 127/84
[2019-05-07] MEDS: METOPROLOL TARTRATE 25 MG TABLET PO SCH ×2 (05:22→18:16)
[2019-05-07 05:25] LABS: BASOPHILS # (AUTO) 0.03 x10^3/uL (0-0.1); BASOPHILS % (AUTO) 0 % (0-1); EOSINOPHILS # (AUTO) 0.18 x10^3/uL (0-0.4); EOSINOPHILS % (AUTO) 2 % (1-7); LYMPHOCYTES # (AUTO) 1.65 x10^3/uL (1-3.4); LYMPHOCYTES % (AUTO) 15 % (22-44); MD NO; MEAN CORPUSCULAR HEMOGLOBIN 27.5 pg (27.5-34.5); MEAN CORPUSCULAR HGB CONC 32.8 g/dL (33.2-36.2); MEAN CORPUSCULAR VOLUME 83.9 fL (81-97); MEAN PLATELET VOLUME 9.5 fL (7.4-10.4); MONOCYTES # (AUTO) 0.91 x10^3/uL (0.2-0.8); MONOCYTES % (AUTO) 8 % (2-9); NEUTROPHILS # (AUTO) 8.56 x10^3/uL (1.8-6.8); NEUTROPHILS % (AUTO) 76 % (42-75); PLATELET COUNT 289 x10^3/uL (130-400); RED BLOOD COUNT 4.32 x10^6/uL (4.38-5.82); RED CELL DISTRIBUTION WIDTH 15.1 % (9.4-14.8)
[2019-05-07 05:27] LABS: INTERNATIONAL NORMALIZED RATIO 1.79 (0.93-1.1); PROTHROMBIN TIME 18.4 Seconds (9.6-11.5)
[2019-05-07 05:38] LABS: ALANINE AMINOTRANSFERASE 37 U/L (12-78); ALBUMIN 2.4 g/dL (3.4-5.0); ANION GAP 7 mmol/L (5-15); CALCIUM 8.3 mg/dL (8.5-10.1); CHLORIDE 109 mmol/L (98-107); CREATININE 0.91 mg/dL (0.7-1.3)
[2019-05-07 05:40] LABS: ALKALINE PHOSPHATASE 57 U/L (45-117); BILIRUBIN,TOTAL 0.6 mg/dL (0.2-1.0); TOTAL PROTEIN 6.3 g/dL (6.4-8.2); TRIGLYCERIDES 114 mg/dL (50-200)
[2019-05-07 07:26] VITALS: BP 131/86
[2019-05-07] MEDS: ERGOCALCIFEROL 50,000 UNIT CAPSULE PO SCH (08:19)
[2019-05-07] MEDS: ASPIRIN 81 MG TABLET EC PO SCH (08:19)
[2019-05-07] MEDS: TAMSULOSIN 0.4 MG CAP.ER.24H PO SCH (08:19)
[2019-05-07] MEDS: DOCUSATE 100 MG CAPSULE PO SCH (08:20)
[2019-05-07] MEDS: SODIUM CHLORIDE FLUSH 10ML SYR IVF SCH ×2 (08:20→20:44)
[2019-05-07] MEDS: FAMOTIDINE 20 MG TABLET PO SCH ×2 (08:20→20:44)
[2019-05-07] MEDS: ENALAPRIL 5MG TABLET PO SCH ×2 (08:20→20:44)
[2019-05-07] MEDS ORDERED: MAGNESIUM SULFATE PMX 2GM/50ML 50 ML IV ONE (08:30)
[2019-05-07] MEDS ORDERED: AMIODARONE 200 MG TABLET PO SCH ×2 (09:00)
[2019-05-07] MEDS ORDERED: FUROSEMIDE 40 MG/4 ML IV ONE (09:30)
[2019-05-07] MEDS ORDERED: POTASSIUM CHLORIDE 20 MEQ TAB.ER.PRT PO ONE (09:30)
[2019-05-07 13:41] VITALS: BP 122/84
[2019-05-07] MEDS: WARFARIN 2 MG TABLET PO-COUM SCH (18:15)
[2019-05-07] MEDS: ACETAMINOPHEN 325 MG TABLET PO PRN (18:15)
[2019-05-07 19:25] VITALS: BP 111/73
[2019-05-07] MEDS ORDERED: DILTIAZEM 5 MG/ML, 5ML ONE (19:43)
[2019-05-07] MEDS ORDERED: ASPIRIN 325 MG TABLET PO STA (19:48)
[2019-05-07] MEDS ORDERED: ASPIRIN 325 MG TABLET ONE (19:49)
[2019-05-07] MEDS ORDERED: AMIODARONE 900 MG in DEXTROSE 5% 482 ML IV SCH (20:02)
[2019-05-07] MEDS ORDERED: FILTER 0.22 MICRON FOR AMIODARONE IV PRN (20:30)
[2019-05-07] MEDS: ATORVASTATIN 80 MG TABLET PO SCH (20:44)
[2019-05-08 01:15] VITALS: BP 127/84
[2019-05-08 05:22] LABS: BASOPHILS # (AUTO) 0.14 x10^3/uL (0-0.1); BASOPHILS % (AUTO) 1 % (0-1); EOSINOPHILS # (AUTO) 0.16 x10^3/uL (0-0.4); EOSINOPHILS % (AUTO) 2 % (1-7); LYMPHOCYTES # (AUTO) 1.79 x10^3/uL (1-3.4); LYMPHOCYTES % (AUTO) 18 % (22-44); MD NO; MEAN CORPUSCULAR VOLUME 84.2 fL (81-97); MEAN PLATELET VOLUME 9.9 fL (7.4-10.4); MONOCYTES # (AUTO) 0.97 x10^3/uL (0.2-0.8); MONOCYTES % (AUTO) 10 % (2-9); NEUTROPHILS # (AUTO) 6.97 x10^3/uL (1.8-6.8); NEUTROPHILS % (AUTO) 70 % (42-75); PLATELET COUNT 275 x10^3/uL (130-400); RED BLOOD COUNT 4.25 x10^6/uL (4.38-5.82)
[2019-05-08 05:23] LABS: INTERNATIONAL NORMALIZED RATIO 1.94 (0.93-1.1); PROTHROMBIN TIME 19.9 Seconds (9.6-11.5)
[2019-05-08 05:38] LABS: ALANINE AMINOTRANSFERASE 34 U/L (12-78); ALBUMIN 2.5 g/dL (3.4-5.0); ANION GAP 7 mmol/L (5-15); CALCIUM 8.4 mg/dL (8.5-10.1); CHLORIDE 110 mmol/L (98-107); CREATININE 0.96 mg/dL (0.7-1.3)
[2019-05-08 05:40] LABS: ALKALINE PHOSPHATASE 62 U/L (45-117); BILIRUBIN,TOTAL 0.4 mg/dL (0.2-1.0)
[2019-05-08] MEDS: METOPROLOL TARTRATE 25 MG TABLET PO SCH (06:34)
[2019-05-08 06:50] VITALS: BP 144/88
[2019-05-08] MEDS: ASPIRIN 81 MG TABLET EC PO SCH (09:27)
[2019-05-08] MEDS: ENALAPRIL 5MG TABLET PO SCH ×2 (09:27→20:29)
[2019-05-08] MEDS: DOCUSATE 100 MG CAPSULE PO SCH (09:27)
[2019-05-08] MEDS: FAMOTIDINE 20 MG TABLET PO SCH ×2 (09:27→20:29)
[2019-05-08] MEDS: SODIUM CHLORIDE FLUSH 10ML SYR IVF SCH ×2 (09:27→21:00)
[2019-05-08] MEDS: TAMSULOSIN 0.4 MG CAP.ER.24H PO SCH (09:27)
[2019-05-08 13:50] VITALS: BP 124/78
[2019-05-08] MEDS ORDERED: AMIODARONE 200 MG TABLET ONE (16:37)
[2019-05-08] MEDS: AMIODARONE 200 MG TABLET PO SCH (16:40)
[2019-05-08] MEDS: METOPROLOL TARTRATE 50 MG TABLET PO SCH (18:09)
[2019-05-08] MEDS: WARFARIN 2 MG TABLET PO-COUM SCH (18:10)
[2019-05-08 19:58] VITALS: BP 133/87
[2019-05-08] MEDS: ATORVASTATIN 80 MG TABLET PO SCH (20:29)
[2019-05-08] MEDS: ACETAMINOPHEN 325 MG TABLET PO PRN (20:29)
[2019-05-08] MEDS: OXYcodone IR 5MG TABLET PO PRN (21:34)
[2019-05-08] MEDS ORDERED: COLCHICINE 0.6 MG CAPSULE PO ONE (23:00)
[2019-05-09 01:02] VITALS: BP 113/73
[2019-05-09] MEDS: METOPROLOL TARTRATE 50 MG TABLET PO SCH ×2 (05:42→16:53)
[2019-05-09 05:48] LABS: BASOPHILS # (AUTO) 0.01 x10^3/uL (0-0.1); BASOPHILS % (AUTO) 0 % (0-1); EOSINOPHILS # (AUTO) 0.09 x10^3/uL (0-0.4); EOSINOPHILS % (AUTO) 1 % (1-7); LYMPHOCYTES # (AUTO) 1.55 x10^3/uL (1-3.4); LYMPHOCYTES % (AUTO) 14 % (22-44); MD NO; MEAN CORPUSCULAR HEMOGLOBIN 26.8 pg (27.5-34.5); MEAN CORPUSCULAR HGB CONC 32.2 g/dL (33.2-36.2); MEAN CORPUSCULAR VOLUME 83.3 fL (81-97); MEAN PLATELET VOLUME 9.4 fL (7.4-10.4); MONOCYTES # (AUTO) 1.17 x10^3/uL (0.2-0.8); MONOCYTES % (AUTO) 10 % (2-9); NEUTROPHILS # (AUTO) 8.58 x10^3/uL (1.8-6.8); NEUTROPHILS % (AUTO) 75 % (42-75); PLATELET COUNT 280 x10^3/uL (130-400); RED BLOOD COUNT 4.15 x10^6/uL (4.38-5.82); RED CELL DISTRIBUTION WIDTH 15.5 % (9.4-14.8)
[2019-05-09 05:49] LABS: INTERNATIONAL NORMALIZED RATIO 2.51 (0.93-1.1); PROTHROMBIN TIME 25.4 Seconds (9.6-11.5)
[2019-05-09 05:52] LABS: ALANINE AMINOTRANSFERASE 30 U/L (12-78); ALBUMIN 2.4 g/dL (3.4-5.0); ANION GAP 6 mmol/L (5-15); CALCIUM 8.5 mg/dL (8.5-10.1); CHLORIDE 109 mmol/L (98-107); CREATININE 1.07 mg/dL (0.7-1.3)
[2019-05-09 05:54] LABS: ALKALINE PHOSPHATASE 59 U/L (45-117); BILIRUBIN,TOTAL 0.7 mg/dL (0.2-1.0); TOTAL PROTEIN 6.3 g/dL (6.4-8.2)
[2019-05-09] MEDS ORDERED: [UNRECOGNIZED DRUG - REMARK] MC SCH (07:30)
[2019-05-09 08:01] VITALS: BP 119/79
[2019-05-09] MEDS: SODIUM CHLORIDE FLUSH 10ML SYR IVF SCH ×2 (09:00→21:07)
[2019-05-09] MEDS: DOCUSATE 100 MG CAPSULE PO SCH (09:00)
[2019-05-09] MEDS: TAMSULOSIN 0.4 MG CAP.ER.24H PO SCH (09:09)
[2019-05-09] MEDS: ASPIRIN 81 MG TABLET EC PO SCH (09:09)
[2019-05-09] MEDS: FAMOTIDINE 20 MG TABLET PO SCH ×2 (09:09→21:08)
[2019-05-09] MEDS: AMIODARONE 200 MG TABLET PO SCH ×2 (09:09→21:07)
[2019-05-09] MEDS: ENALAPRIL 5MG TABLET PO SCH ×2 (09:09→21:08)
[2019-05-09] MEDS: OXYcodone IR 5MG TABLET PO PRN (09:13)
[2019-05-09] MEDS: COLCHICINE 0.6 MG CAPSULE PO SCH (11:25)
[2019-05-09] MEDS: HYDROcodone/APAP 10/325 MG TABLET PO PRN ×2 (11:25→16:54)
[2019-05-09 13:19] VITALS: BP 116/77
[2019-05-09] MEDS: BISACODYL 5 MG EC TABLET PO PRN (16:54)
[2019-05-09] MEDS ORDERED: WARFARIN 2 MG TABLET PO-COUM ONE (18:00)
[2019-05-09 19:09] VITALS: BP 109/74
[2019-05-09] MEDS: ATORVASTATIN 80 MG TABLET PO SCH (21:08)
[2019-05-10 00:37] VITALS: BP 131/85
[2019-05-10 05:46] LABS: BASOPHILS # (AUTO) 0.05 x10^3/uL (0-0.1); BASOPHILS % (AUTO) 1 % (0-1); EOSINOPHILS # (AUTO) 0.16 x10^3/uL (0-0.4); EOSINOPHILS % (AUTO) 2 % (1-7); LYMPHOCYTES % (AUTO) 17 % (22-44); MD NO; MEAN CORPUSCULAR HEMOGLOBIN 27.2 pg (27.5-34.5); MEAN CORPUSCULAR HGB CONC 31.9 g/dL (33.2-36.2); MEAN CORPUSCULAR VOLUME 85.4 fL (81-97); MEAN PLATELET VOLUME 10.3 fL (7.4-10.4); MONOCYTES # (AUTO) 0.89 x10^3/uL (0.2-0.8); MONOCYTES % (AUTO) 10 % (2-9); NEUTROPHILS # (AUTO) 6.59 x10^3/uL (1.8-6.8); NEUTROPHILS % (AUTO) 71 % (42-75); PLATELET COUNT 253 x10^3/uL (130-400); RED BLOOD COUNT 4.47 x10^6/uL (4.38-5.82); RED CELL DISTRIBUTION WIDTH 15.3 % (9.4-14.8)
[2019-05-10 05:48] LABS: ANION GAP 7 mmol/L (5-15); CALCIUM 8.5 mg/dL (8.5-10.1); CHLORIDE 109 mmol/L (98-107)
[2019-05-10 05:49] LABS: CREATININE 1.05 mg/dL (0.7-1.3); TRIGLYCERIDES 123 mg/dL (50-200)
[2019-05-10 05:58] LABS: INTERNATIONAL NORMALIZED RATIO 2.58 (0.93-1.1); PROTHROMBIN TIME 26.1 Seconds (9.6-11.5)
[2019-05-10] MEDS: METOPROLOL TARTRATE 50 MG TABLET PO SCH (06:27)
[2019-05-10 06:53] VITALS: BP 129/83
[2019-05-10] MEDS: TAMSULOSIN 0.4 MG CAP.ER.24H PO SCH (08:07)
[2019-05-10] MEDS: FAMOTIDINE 20 MG TABLET PO SCH (08:08)
[2019-05-10] MEDS: COLCHICINE 0.6 MG CAPSULE PO SCH (08:08)
[2019-05-10] MEDS: AMIODARONE 200 MG TABLET PO SCH (08:08)
[2019-05-10] MEDS: ENALAPRIL 5MG TABLET PO SCH (08:08)
[2019-05-10] MEDS: DOCUSATE 100 MG CAPSULE PO SCH (08:08)
[2019-05-10] MEDS: ASPIRIN 81 MG TABLET EC PO SCH (08:08)
[2019-05-10] MEDS: SODIUM CHLORIDE FLUSH 10ML SYR IVF SCH (08:08)
[2019-05-10] MEDS: HYDROcodone/APAP 10/325 MG TABLET PO PRN (09:11)
[2019-05-10] MEDS ORDERED: COLC0.6C3 PO (11:21)
[2019-05-10] MEDS ORDERED: ERGO500017 PO (11:21)
[2019-05-10] MEDS ORDERED: WARF2TAB PO-COUM (11:21)
[2019-05-10] MEDS ORDERED: METO50TA82 PO (11:21)
[2019-05-10] MEDS ORDERED: AMIO200T42 PO (11:21)
[2019-05-10 12:07] VITALS: BP 95/61
[2019-05-10 12:10] VITALS: BP 98/64
[2019-05-10] MEDS ORDERED: WARFARIN 2 MG TABLET PO-COUM SCH (18:00)
== END 2019-05-10 14:50 | DRG 216 ==
LOC: ED 19:51 → EDIP 20:32 → 5SO 21:41 → CCU 04-28 10:09 → CSU 04-28 13:53 → 5SO 04-30 09:24
PROVIDERS: ADMIT Internal Medicine; ATTEND Internal Medicine
PROC: 4A023N7 Measurement of Cardiac Sampling and Pressure, Left Heart, Percutaneous Approach (ICD-10-PCS; 2019-04-28)
PROC: 5A02210 Assistance with Cardiac Output using Balloon Pump, Continuous (ICD-10-PCS; 2019-04-28)
PROC: B2111ZZ Fluoroscopy of Multiple Coronary Arteries using Low Osmolar Contrast (ICD-10-PCS; 2019-04-28)
PROC: B2151ZZ Fluoroscopy of Left Heart using Low Osmolar Contrast (ICD-10-PCS; 2019-04-28)
PROC: B246ZZ4 Ultrasonography of Right and Left Heart, Transesophageal (ICD-10-PCS; 2019-04-28)
PROC: 5A1221Z Performance of Cardiac Output, Continuous (ICD-10-PCS; 2019-04-28)
PROC: 5A1223Z Performance of Cardiac Pacing, Continuous (ICD-10-PCS; 2019-04-28)
PROC: 4A133B1 Monitoring of Arterial Pressure, Peripheral, Percutaneous Approach (ICD-10-PCS; 2019-04-28)
PROC: 05H633Z Insertion of Infusion Device into Left Subclavian Vein, Percutaneous Approach (ICD-10-PCS; 2019-04-28)
PROC: B547ZZA Ultrasonography of Left Subclavian Vein, Guidance (ICD-10-PCS; 2019-04-28)
PROC: 02HV33Z Insertion of Infusion Device into Superior Vena Cava, Percutaneous Approach (ICD-10-PCS; 2019-04-28)
PROC: B548ZZA Ultrasonography of Superior Vena Cava, Guidance (ICD-10-PCS; 2019-04-28)
PROC: 0BH17EZ Insertion of Endotracheal Airway into Trachea, Via Natural or Artificial Opening (ICD-10-PCS; 2019-04-28)
PROC: 5A1945Z Respiratory Ventilation, 24-96 Consecutive Hours (ICD-10-PCS; 2019-04-28)
PROC: 02RG08Z Replacement of Mitral Valve with Zooplastic Tissue, Open Approach (ICD-10-PCS; principal; 2019-04-28 12:00)
DX: I21.19 ST elevation (STEMI) myocardial infarction involving other coronary artery of inferior wall (principal); I00-I99 Diseases of the circulatory system; R57.0 Cardiogenic shock; J96.01 Acute respiratory failure with hypoxia; N17.0 Acute kidney failure with tubular necrosis; I50.43 Acute on chronic combined systolic (congestive) and diastolic (congestive) heart failure; E46 Unspecified protein-calorie malnutrition; D68.69 Other thrombophilia; I13.0 Hypertensive heart and chronic kidney disease with heart failure and stage 1 through stage 4 chronic kidney disease, or unspecified chronic kidney disease; I47.2 Ventricular tachycardia; Z99.11 Dependence on respirator [ventilator] status; R04.2 Hemoptysis; D64.9 Anemia, unspecified; E78.5 Hyperlipidemia, unspecified; E83.51 Hypocalcemia; F12.90 Cannabis use, unspecified, uncomplicated; F17.210 Nicotine dependence, cigarettes, uncomplicated; G43.909 Migraine, unspecified, not intractable, without status migrainosus; I25.10 Atherosclerotic heart disease of native coronary artery without angina pectoris; I44.0 Atrioventricular block, first degree; M10.9 Gout, unspecified; N18.2 Chronic kidney disease, stage 2 (mild); R31.29 Other microscopic hematuria; R33.9 Retention of urine, unspecified; I34.1 Nonrheumatic mitral (valve) prolapse; Z79.01 Long term (current) use of anticoagulants; Z79.899 Other long term (current) drug therapy; Z82.49 Family history of ischemic heart disease and other diseases of the circulatory system
CPT/HCPCS: 33967; 36415; 36600; 71045; 71250; 76770; 80048; 80053; 80061; 80069; 81001; 82306; 82310; 82330; 82436; 82550; 82570; 82728; 82800; 82803; 82810; 82947; 82962; 83540; 83550; 83605; 83735; 83880; 83970; 84100; 84132; 84133; 84145; 84156; 84295; 84300; 84478; 84484; 84550; 85014; 85018; 85025; 85045; 85049; 85347; 85520; 85610; 85730; 86850; 86900; 86923; 87040; 87070; 87081; 87205; 87324; 88305; 93005; 93306; 93312; 93321; 93325; 93458; 94002; 94003; 94640; 96374; 96375; 99156; 99157; C1725; C1769; C1894; G0378; J0171; J0583; J0697; J1644; J1756; J1815; J1940; J2250; J2704; J2720; J3010; J3370; J3430; J3475; J3480; J7620; P9045; P9047; C1751; C1760; J0282; J2370; J2440; J2930; J3490; J7050; J7060; J7120; Q9967

== ENCOUNTER → 2020-02-13 | Outpatient (CLI) | payer MEDICARE ==
[~2020-02-13] MED LIST: ACET325T26 PO; AMIO200T42 PO; AMLO10TA4 PO; ASPI81TA45 PO; ATOR-2 PO; BENA20TA61 PO; CARV12.543 PO; CEFD300C37 PO; COLC0.6C3 PO; ERGO500017 PO; METO25TA91 PO; METO50TA82 PO; METR500T PO; Tamsulosin PO; WARF2TAB PO-COUM; WARF5TAB PO
== END | disposition home or self-care (01) ==
LOC: CVU 07:54
PROVIDERS: ATTEND Internal Medicine Cardiovascular Disease
DX: I35.8 Other nonrheumatic aortic valve disorders (principal); I42.9 Cardiomyopathy, unspecified
CPT/HCPCS: 93306

== ENCOUNTER → 2021-01-22 | Outpatient (CLI) | payer MEDICARE ==
[~2021-01-22] MED LIST changes: -WARF5TAB PO; +WARF5TAB2 PO
== END | disposition home or self-care (01) ==
LOC: CVU 09:39
PROVIDERS: ATTEND Internal Medicine Cardiovascular Disease
DX: I06.8 Other rheumatic aortic valve diseases (principal); E78.5 Hyperlipidemia, unspecified; I11.9 Hypertensive heart disease without heart failure; I25.2 Old myocardial infarction; I06.1 Rheumatic aortic insufficiency; Z87.891 Personal history of nicotine dependence; Z95.2 Presence of prosthetic heart valve
CPT/HCPCS: 93306